=== PATIENT | female | born 1995 | race American Indian/Alaskan Native ===

== ENCOUNTER 2021-02-11 19:31 | Inpatient (IN) | payer BC ==
[2021-02-11] MEDS ORDERED: SODIUM CHLORIDE 0.9% 1000 ML 1,000 ML IV ONE (19:44)
--- NOTE | 2021-02-11 19:57 | Emergency Department Report ---
ED Animal Bite HPI - General Chief Complaint: Animal Bite Stated Complaint: SNAKE BITE Time Seen by Provider: 02/11/21 19:43 Source: patient Mode of arrival: Ambulatory Limitations: No Limitations - History of Present Illness Initial Comments: Patient presents secondary to a snake bite. She states that she is picked up sticks before. She saw a baby snake on her porch. She bent down to pick it up and it bit her. It bit her on the left index finger. She is right-hand dominant. The bite was over the middle phalanx dorsally. She states that it bi t her in [place]. She then ran. After looking up the type of snake on the Internet, she has concluded that this was a copperhead bite. She came here for evaluation. She is complaining of pain and swelling in the left index finger. She believes her immunizations are up-to-date. She has no other pain and no other bites. She currently is not having chest pain or trouble breathing. She states that she does not want to . - Related Data Allergies Allergy/AdvReac Type Severity Reaction Status Date / Time No Known Allergies Allergy Verified 02/11/21 20:30 ED Review of Systems ROS: Stated complaint: SNAKE BITE Other details as noted in HPI Comment: All other systems reviewed and negative Constitutional: denies: fever Eyes: denies: eye pain ENT: denies: throat pain Respiratory: denies: cough Cardiovascular: denies: chest pain Endocrine: denies: unexplained weight loss Gastrointestinal: denies: abdominal pain Genitourinary: denies: dysuria Musculoskeletal: denies: back pain Skin: denies: rash Neurological: denies: headache Psychiatric: anxiety (About the bite) Hematological/Lymphatic: denies: easy bruising ED Past Medical Hx - Past Medical History Previous Medical History?: No - Surgical History Past Surgical History?: No - Family History Family history: no significant ED Physical Exam - General Limitations: No Limitations, Other (Anxious and tearful. Pulse ox was noted in 100%. She is not hypoxic.) General appearance: alert, in distress (Moderate) - Head Head exam: Present: atraumatic, normocephalic, normal inspection - Eye Eye exam: Present: normal appearance, EOMI. Absent: scleral icterus - ENT ENT exam: Present: normal exam, normal orophraynx, mucous membranes moist - Neck Neck exam: Present: normal inspection. Absent: meningismus - Respiratory Respiratory exam: Present: normal lung sounds bilaterally. Absent: respiratory distress - Cardiovascular Cardiovascular Exam: Present: normal rhythm, tachycardia - GI/Abdominal GI/Abdominal exam: Present: soft. Absent: tenderness - Extremities Exam Extremities exam: Present: other (Patient has 2 puncture wounds to the dorsum of the left index finger over the middle phalanx. There is edema involving the left index finger to the MCP area. There is tenderness in this area.) - Back Exam Back exam: Absent: CVA tenderness (R), CVA tenderness (L) - Neurological Exam Neurological exam: Present: alert, oriented X3, reflexes normal. Absent: motor sensory deficit - Psychiatric Psychiatric exam: Present: anxious - Skin Skin exam: Present: warm, dry ED Course Vital Signs 02/11/21 02/11/21 02/11/21 19:35 19:54 20:01 Temperature 97.6 F Pulse Rate 140 H 106 H Respiratory 20 16 Rate Blood Pressure 129/57 Blood Pressure 123/77 [Right] O2 Sat by Pulse 100 93 98 Oximetry 02/11/21 02/11/21 02/11/21 20:15 20:31 20:45 Temperature Pulse Rate 103 H 95 H 91 H Respiratory 14 15 14 Rate Blood Pressure 132/63 118/76 111/69 Blood Pressure [Right] O2 Sat by Pulse 98 98 97 Oximetry 02/11/21 02/11/21 02/11/21 21:01 21:15 21:31 Temperature Pulse Rate 99 H 84 99 H Respiratory 15 13 14 Rate Blood Pressure 114/64 120/69 114/64 Blood Pressure [Right] O2 Sat by Pulse 98 97 97 Oximetry - Reevaluation(s) Reevaluation #1: 02/11/21 19:57 IV labs are ordered. Antibiotics were ordered. Tetanus booster was updated. Currently, there are no systemic symptoms. We will administer antivenin if they develop. 02/11/21 20:00 Reevaluation #2: 02/11/21 20:30 Patient is still tachycardic. There is more edema in the hand. We will initiate treatment with CroFab. Reevaluation #3: 02/11/21 21:17 Swelling is continuing to worsen. Patient is complaining of increasing pain in the left hand. Morphine and Zofran were ordered. Reevaluation #4: 02/11/21 21:29 Case was discussed with the hospitalist who will come see the patient. Reevaluation #5: 02/11/21 21:43 The patient was seen by the hospitalist who will admit the patient. 02/11/21 21:44 MDM Patient presented secondary to snake bite to the left index finger. She had developed some degree of systemic symptoms including worsening edema of the finger and hand and wrist. The presumption was that this was a pit viper, ying, based on her review and research. Patient was given antivenom here. She was hemodynamically stable. She was ultimately admitted for ongoing treatment and supportive care. She had been given analgesics here. Currently, there is no evidence of coagulopathy that has developed. Critical Care Time: Yes Critical care attestation.: If time is entered above; I have spent that time in minutes in the direct care of this critically ill patient, excluding procedure time. Critical Care Time: Critical care time of 45 minutes exclusive of procedures based on patient presentation and administer antivenom. ED Disposition Clinical Impression: Snake bite Qualifiers: Encounter type: initial encounter Qualified Code(s): W59.11XA - Bitten by nonvenomous snake, initial encounter Disposition: ADMITTED INPATIENT Is pt being admited?: Yes Does the pt Need Aspirin: No Condition: Fair
[2021-02-11] MEDS ORDERED: [UNRECOGNIZED DRUG - OTHER] IV ONE (20:29)
[2021-02-11] MEDS ORDERED: SODIUM CHLORIDE IV ONE (20:29)
[2021-02-11 20:56] LABS: Basophils # (Auto) 0.1 K/mm3 (0.0-0.1); Eosinophils # (Auto) 0.2 K/mm3 (0.0-0.4); Hematocrit 37.2 % (30.3-42.9); Hemoglobin 12.5 gm/dl (10.1-14.3); Lymphocytes # (Auto) 2.7 K/mm3 (1.2-5.4); Lymphocytes % (Auto) 38.4 % (13.4-35.0); Mean Corpuscular HGB Conc 34 % (30-34); Mean Corpuscular Volume 77 fl (79-97); Monocytes # (Auto) 0.6 K/mm3 (0.0-0.8); Monocytes % (Auto) 8.1 % (0.0-7.3); Platelet Count 381 K/mm3 (140-440); Red Blood Count 4.83 M/mm3 (3.65-5.03); Red Cell Distribution Width 15.7 % (13.2-15.2)
[2021-02-11 21:04] LABS: INR 0.98 (0.87-1.13)
[2021-02-11 21:06] LABS: Partial Thromboplastin Time 31.5 Sec. (24.2-36.6)
[2021-02-11 21:15] LABS: Alanine Aminotransferase 8 units/L (7-56); Albumin 4.5 g/dL (3.9-5); Blood Urea Nitrogen 6 mg/dL (7-17); Calcium 9.3 mg/dL (8.4-10.2); Hemolysis Index 2
[2021-02-11 21:17] LABS: BUN/Creatinine Ratio 12
[2021-02-11] MEDS ORDERED: MORPHINE 4 MG/1 ML INJ IV ONE (21:17)
[2021-02-11] MEDS: ONDANSETRON 4 MG/2 ML INJ IV ONE (21:31)
[2021-02-11] MEDS ORDERED: ONDANSETRON 4 MG/2 ML INJ IV PRN (21:50)
[2021-02-11] MEDS ORDERED: HYDROmorphone 1 MG/1 ML INJ IV PRN (21:50)
[2021-02-11] MEDS ORDERED: ALBUTEROL 2.5 MG/3 ML NEBU IH PRN (21:50)
[2021-02-11] MEDS ORDERED: oxyCODONE /ACETAMINOPHEN 5-325MG TAB PO PRN (21:50)
[2021-02-11] MEDS ORDERED: ACETAMINOPHEN 325 MG TAB PO PRN (21:50)
[2021-02-11] MEDS ORDERED: PIPERACIL/TAZOBACTA 4.5/NS 100 4.5 GM/100 ML VIAL IV SCH (22:00)
--- NOTE | 2021-02-11 22:01 | History and Physical Report ---
History of Present Illness Date of examination: 02/11/21 Date of admission: 02/11/21 Chief complaint: Snake bite History of present illness: 25 years old female with no significant past medical history was brought to the emergency room because of snake bite. She states that she is picked up sticks before. She saw a baby snake on her porch. She bent down to pick it up and it bit her. It bit her on the left index finger. She is right-hand dominant. The bite was over the middle phalanx dorsally. She states that it bit her in [place]. She then ran. After looking up the type of snake on the Internet, she has concluded that this was a copperhead bite. She came here for evaluation. She is complaining of pain and swelling in the left index finger. She believes her immunizations are up-to-date. She has no other pain and no other bites. She currently is not having chest pain or trouble breathing. She states that she does not want to . Patient presented secondary to snake bite to the left index finger. She had developed some degree of systemic symptoms including worsening edema of the finger and hand and wrist. The presumption was that this was a copperhead, based on her review and research. Patient was given antivenom here. She was hemodynamically stable. She was ultimately admitted for ongoing treatment and supportive care. She had been given analgesics here. Currently, there is no evidence of coagulopathy that has developed. Medications and Allergies Allergies Allergy/AdvReac Type Severity Reaction Status Date / Time No Known Allergies Allergy Verified 02/11/21 20:30 Active Meds: Active Medications Acetaminophen (Acetaminophen 325 Mg Tab) 650 mg PO Q4H PRN PRN Reason: Pain MILD(1-3)/Fever >100.5/WOLF Albuterol (Albuterol 2.5 Mg/3 Ml Nebu) 2.5 mg IH Q4HRT PRN PRN Reason: Shortness Of Breath Albuterol/Ipratropium (Ipratropium/Albuterol Sulfate 3 Ml Ampul.Neb) 1 ampul IH Q6HRT JAVIER Hydromorphone HCl (Hydromorphone 1 Mg/1 Ml Inj) 0.5 mg IV Q3H PRN PRN Reason: Pain , Severe (7-10) Dextrose/Sodium Chloride (D5ns) 1,000 mls @ 100 mls/hr IV DIRECT JAVIER Piperacillin Sod/Tazobactam Sod (Zosyn/Ns 4.5gm/100ml) 4.5 gm in 100 mls @ 200 mls/hr IV Q8H JAVIER; Protocol Ondansetron HCl (Ondansetron 4 Mg/2 Ml Inj) 4 mg IV Q8H PRN PRN Reason: Nausea And Vomiting Oxycodone/Acetaminophen (Oxycodone /Acetaminophen 5-325mg Tab) 1 tab PO Q6H PRN PRN Reason: Pain, Moderate (4-6) Pantoprazole Sodium (Pantoprazole 40 Mg Tab) 40 mg PO QDAC JAVIER Sodium Chloride (Sodium Chloride 0.9% 10 Ml Flush Syringe) 10 ml IV BID JAVIER Sodium Chloride (Sodium Chloride 0.9% 10 Ml Flush Syringe) 10 ml IV PRN PRN PRN Reason: LINE FLUSH Review of Systems All systems: negative Musculoskeletal: other ((Patient has 2 puncture wounds to the dorsum of the left index finger over the middle phalanx. There is edema involving the left index finger to the MCP area. There is tenderness in this area.)) Exam - Constitutional Vitals: Temp Pulse Resp BP Pulse Ox 97.6 F 99 H 14 114/64 97 02/11/21 19:35 02/11/21 21:31 02/11/21 21:31 02/11/21 21:31 02/11/21 21:31 General appearance: Present: no acute distress, well-nourished - EENT Eyes: Present: PERRL ENT: hearing intact, clear oral mucosa - Neck Neck: Present: supple, normal ROM - Respiratory Respiratory effort: normal Respiratory: bilateral: CTA - Cardiovascular Heart Sounds: Present: S1 & S2. Absent: rub, click - Extremities Extremities: pulses symmetrical, No edema Extremity abnormal: other ((Patient has 2 puncture wounds to the dorsum of the left index finger over the middle phalanx. There is edema involving the left index finger to the MCP area. There is tenderness in this area.)) Peripheral Pulses: within normal limits - Abdominal General gastrointestinal: Present: soft, non-tender, non-distended, normal bowel sounds Female genitourinary: Present: normal - Integumentary Integumentary: Present: clear, warm, dry - Musculoskeletal Musculoskeletal: gait normal, strength equal bilaterally - Psychiatric Psychiatric: appropriate mood/affect, intact judgment & insight - Neurologic Neurologic: CNII-XII intact, moves all extremities Results - Labs CBC & Chem 7: 02/11/21 20:24 02/11/21 20:24 Labs: Laboratory Last Values WBC 7.1 K/mm3 (4.5-11.0) 02/11/21 20:24 RBC 4.83 M/mm3 (3.65-5.03) 02/11/21 20:24 Hgb 12.5 gm/dl (10.1-14.3) 02/11/21 20:24 Hct 37.2 % (30.3-42.9) 02/11/21 20:24 MCV 77 fl (79-97) L 02/11/21 20:24 MCH 26 pg (28-32) L 02/11/21 20:24 MCHC 34 % (30-34) 02/11/21 20:24 RDW 15.7 % (13.2-15.2) H 02/11/21 20: Plt Count 381 K/mm3 (140-440) 02/11/21 20:24 Lymph % (Auto) 38.4 % (13.4-35.0) H 02/11/21 20:24 Fisher % (Auto) 8.1 % (0.0-7.3) H 02/11/21 20:24 Eos % (Auto) 3.0 % (0.0-4.3) 02/11/21 20:24 Baso % (Auto) 1.0 % (0.0-1.8) 02/11/21 20:24 Lymph # (Auto) 2.7 K/mm3 (1.2-5.4) 02/11/21 20:24 Fisher # (Auto) 0.6 K/mm3 (0.0-0.8) 02/11/21 20:24 Eos # (Auto) 0.2 K/mm3 (0.0-0.4) 02/11/21 20:24 Baso # (Auto) 0.1 K/mm3 (0.0-0.1) 02/11/21 20:24 Seg Neutrophils % 49.5 % (40.0-70.0) 02/11/21 20:24 Seg Neutrophils # 3.5 K/mm3 (1.8-7.7) 02/11/21 20:24 PT 13.5 Sec. (12.2-14.9) 02/11/21 20:24 INR 0.98 (0.87-1.13) 02/11/21 20:24 APTT 31.5 Sec. (24.2-36.6) 02/11/21 20:24 Sodium 137 mmol/L (137-145) 02/11/21 20:24 Potassium 3.6 mmol/L (3.6-5.0) 02/11/21 20:24 Chloride 102.6 mmol/L (98-107) 02/11/21 20:24 Carbon Dioxide 20 mmol/L (22-30) L 02/11/21 20:24 Anion Gap 18 mmol/L 02/11/21 20:24 BUN 6 mg/dL (7-17) L 02/11/21 20:24 Creatinine 0.5 mg/dL (0.6-1.2) L 02/11/21 20:24 Estimated GFR > 60 ml/min 02/11/21 20:24 BUN/Creatinine Ratio 12 % 02/11/21 20:24 Glucose 103 mg/dL (65-100) H 02/11/21 20:24 Calcium 9.3 mg/dL (8.4-10.2) 02/11/21 20:24 Total Bilirubin 0.20 mg/dL (0.1-1.2) 02/11/21 20:24 AST 15 units/L (5-40) 02/11/21 20:24 ALT 8 units/L (7-56) 02/11/21 20:24 Alkaline Phosphatase 94 units/L (35-129) 02/11/21 20:24 Total Protein 7.4 g/dL (6.3-8.2) 02/11/21 20:24 Albumin 4.5 g/dL (3.9-5) 02/11/21 20:24 Albumin/Globulin Ratio 1.6 % 02/11/21 20:24 Assessment and Plan VTE prophylaxis?: Mechanical Plan of care discussed with patient/family: Yes - Patient Problems (1) Snake bite Status: Acute Qualifiers: Encounter type: initial encounter Qualified Code(s): W59.11XA - Bitten by nonvenomous snake, initial encounter Plan to address problem: Admit the patient to the medical telemetry. N.p.o. D5 normal saline at the rate of 100 cc/h. Protonix 40 mg p.o. daily. Patient already get CroFab 5 vials in the emergency room. Zosyn 4.5 g IV every 8 hours. We will monitor the patient closely in the telemetry. Will consult wound care and infectious disease for evaluation. Consult neuro in the morning if needed. We will recheck CBC CMP PT/INR in the morning. If needed will give additional CroFab. (2) DVT prophylaxis Status: Acute Plan to address problem: SCD for DVT prophylaxis. Protonix 40 mg p.o. daily for GI prophylaxis. Patient is a full code.
--- NOTE | 2021-02-11 22:38 | XRay Report ---
EXAMINATION: XR finger(s) 2+V LT, INDICATION / CLINICAL INFORMATION: snake bite...index finger COMPARISON: None available. FINDINGS: BONES / JOINT(S): No acute fracture or subluxation. SOFT TISSUES: Mild soft tissue swelling of the left index finger. No soft tissue gas or radiopaque fo reign body. ADDITIONAL FINDINGS: None. IMPRESSION: Soft tissue swelling of the left index finger. No radiopaque foreign body or acute fracture. Signer Name: Caden Stout MD Signed: 02/11/2021 10:34 PM Workstation Name: [id number]
[2021-02-11] MEDS: oxyCODONE /ACETAMINOPHEN 5-325MG TAB PO PRN (23:50)
[2021-02-12 05:21] LABS: Basophils # (Auto) 0.1 K/mm3 (0.0-0.1); Eosinophils # (Auto) 0.1 K/mm3 (0.0-0.4); Eosinophils % (Auto) 0.9 % (0.0-4.3); Monocytes # (Auto) 0.9 K/mm3 (0.0-0.8); Monocytes % (Auto) 9.7 % (0.0-7.3)
[2021-02-12 05:29] LABS: INR 1.11 (0.87-1.13)
[2021-02-12 05:35] LABS: Hematocrit 32.3 % (30.3-42.9); Hemoglobin 10.4 gm/dl (10.1-14.3); Lymphocytes # (Auto) 2.2 K/mm3 (1.2-5.4); Lymphocytes % (Auto) 23.8 % (13.4-35.0); Mean Corpuscular HGB Conc 32 % (30-34); Mean Corpuscular Volume 78 fl (79-97); Platelet Count 290 K/mm3 (140-440); Red Blood Count 4.14 M/mm3 (3.65-5.03); Red Cell Distribution Width 15.7 % (13.2-15.2)
[2021-02-12 05:40] LABS: Alanine Aminotransferase 7 units/L (7-56); Albumin 3.7 g/dL (3.9-5); Blood Urea Nitrogen 6 mg/dL (7-17); Calcium 8.3 mg/dL (8.4-10.2); Hemolysis Index 0
[2021-02-12 05:42] LABS: BUN/Creatinine Ratio 12
[2021-02-12] MEDS: PANTOPRAZOLE 40 MG TAB PO SCH (07:40)
[2021-02-12] MEDS: D5W/0.9% NACL 1,000 ML IV SCH ×2 (07:56→22:39)
[2021-02-12] MEDS: oxyCODONE /ACETAMINOPHEN 5-325MG TAB PO PRN ×2 (11:06→18:19)
--- NOTE | 2021-02-12 11:37 | Progress Note ---
Assessment and Plan Assessment and plan: --Copperhead snake bite; Status: Acute Patient already get CroFab 5 vials in ED upon arrival Pain medications, IV fluids, elevate the limb supportive care Empiric antibiotics Zosyn, pending ID and wound care evaluation Patient has no allergic reaction, neurologic reaction altered level of consciousness Continue supportive care --Cellulitis left hand and forearm Status: Acute Elevate the limb,, Continue IV antibiotics, anti-inflammatories Antihistamines if needed, and supportive care --DVT prophylaxis Status: Acute SCD for DVT prophylaxis. Follow ID evaluation recommendations Closely monitor the patient and adjust management as needed Plan of care with the patient and her nurse Possible discharge in 1 to 2 days if stable History Interval history: I have seen and examined the patient at the bedside Patient's chart and medications reviewed Patient complains of some pain left hand and forearm and swelling Left index finger slight discoloration at the site of snakebite and tenderness on palpation Hospitalist Physical - Constitutional Vitals: Temp Pulse Resp BP Pulse Ox 98.4 F 74 20 105/63 99 02/12/21 09:04 02/12/21 09:04 02/12/21 09:04 02/12/21 09:04 02/12/21 09:04 General appearance: Present: mild distress, well-nourished - EENT Eyes: Present: PERRL, EOM intact - Neck Neck: Present: supple, normal ROM - Respiratory Respiratory effort: normal Respiratory: bilateral: diminished, negative: rales, rhonchi, wheezing - Cardiovascular Rhythm: regular Heart Sounds: Present: S1 & S2 - Extremities Extremities: abnormal (Left hand forearm swelling, tenderness) - Abdominal General gastrointestinal: soft, non-tender, non-distended, normal bowel sounds - Integumentary Integumentary: Present: clear, warm - Psychiatric Psychiatric: appropriate mood/affect, cooperative - Neurologic Neurologic: CNII-XII intact, moves all extremities Results - Labs CBC & Chem 7: 02/12/21 04:52 02/12/21 04:52 Labs: Laboratory Last Values WBC 9.2 K/mm3 (4.5-11.0) 02/12/21 04:52 RBC 4.14 M/mm3 (3.65-5.03) 02/12/21 04:52 Hgb 10.4 gm/dl (10.1-14.3) 02/12/21 04:52 Hct 32.3 % (30.3-42.9) 02/12/21 04:52 MCV 78 fl (79-97) L 02/12/21 04:52 MCH 25 pg (28-32) L 02/12/21 04:52 MCHC 32 % (30-34) 02/12/21 04:52 RDW 15.7 % (13.2-15.2) H 02/12/21 04:52 Plt Count 290 K/mm3 (140-440) 02/12/21 04:52 Lymph % (Auto) 23.8 % (13.4-35.0) 02/12/21 04:52 [place] % (Auto) 9.7 % (0.0-7.3) H 02/12/21 04:52 Eos % (Auto) 0.9 % (0.0-4.3) 02/12/21 04:52 Baso % (Auto) 1.0 % (0.0-1.8) 02/12/21 04:52 Lymph # (Auto) 2.2 K/mm3 (1.2-5.4) 02/12/21 04:52 [place] # (Auto) 0.9 K/mm3 (0.0-0.8) H 02/12/21 04:52 Eos # (Auto) 0.1 K/mm3 (0.0-0.4) 02/12/21 04:52 Baso # (Auto) 0.1 K/mm3 (0.0-0.1) 02/12/21 04:52 Seg Neutrophils % 64.6 % (40.0-70.0) 02/12/21 04:52 Seg Neutrophils # 5.9 K/mm3 (1.8-7.7) 02/12/21 04:52 PT 14.8 Sec. (12.2-14.9) 02/12/21 04:52 INR 1.11 (0.87-1.13) 02/12/21 04:52 APTT 31.5 Sec. (24.2-36.6) 02/11/21 20:24 Sodium 140 mmol/L (137-145) 02/12/21 04:52 Potassium 3.5 mmol/L (3.6-5.0) L 02/12/21 04:52 Chloride 108.0 mmol/L (98-107) H 02/12/21 04:52 Carbon Dioxide 22 mmol/L (22-30) 02/12/21 04:52 Anion Gap 14 mmol/L 02/12/21 04:52 BUN 6 mg/dL (7-17) L 02/12/21 04:52 Creatinine 0.5 mg/dL (0.6-1.2) L 02/12/21 04:52 Estimated GFR > 60 ml/min 02/12/21 04:52 BUN/Creatinine Ratio 12 % 02/12/21 04:52 Glucose 93 mg/dL (65-100) 02/12/21 04:52 Calcium 8.3 mg/dL (8.4-10.2) L 02/12/21 04:52 Total Bilirubin 0.40 mg/dL (0.1-1.2) 02/12/21 04:52 AST 11 units/L (5-40) 02/12/21 04:52 ALT 7 units/L (7-56) 02/12/21 04:52 Alkaline Phosphatase 79 units/L (35-129) 02/12/21 04:52 Total Protein 6.1 g/dL (6.3-8.2) L 02/12/21 04:52 Albumin 3.7 g/dL (3.9-5) L 02/12/21 04:52 Albumin/Globulin Ratio 1.5 % 02/12/21 04:52 Schumacher/IV: Voiding Method Toilet Active Medications - Current Medications Current Medications: Generic Name Dose Route Start Last Admin Trade Name Freq PRN Reason Stop Dose Admin Acetaminophen 650 mg 02/11/21 21:50 Acetaminophen 325 Mg Tab PO Q4H PRN Pain MILD(1-3)/Fever >100.5/WOLF Albuterol 2.5 mg 02/11/21 21:50 Albuterol 2.5 Mg/3 Ml Nebu IH Q4HRT PRN Shortness Of Breath Albuterol/Ipratropium 1 ampul 02/12/21 02:00 Ipratropium/Albuterol Sulfate 3 Ml Ampul.Neb IH Q6HRT JAVIER Hydromorphone HCl 0.5 mg 02/11/21 21:50 Hydromorphone 1 Mg/1 Ml Inj IV Q3H PRN Pain , Severe (7-10) Dextrose/Sodium Chloride 1,000 mls @ 100 mls/hr 02/11/21 22:00 02/12/21 07:56 D5ns IV 100 mls/hr DIRECT JAVIER Administration Piperacillin Sod/Tazobactam Sod 4.5 gm in 100 mls @ 200 mls/hr 02/11/21 22:00 02/12/21 07:57 Zosyn/Ns 4.5gm/100ml IV 200 mls/hr Q8H JAVIER Administration Protocol Ondansetron HCl 4 mg 02/11/21 21:50 Ondansetron 4 Mg/2 Ml Inj IV Q8H PRN Nausea And Vomiting Oxycodone/Acetaminophen 1 tab 02/11/21 23:29 02/12/21 11:06 Oxycodone /Acetaminophen 5-325mg Tab PO 1 tab Q6H PRN Administration Pain, Moderate (4-6) Pantoprazole Sodium 40 mg 02/12/21 07:30 Pantoprazole 40 Mg Tab PO QDAC JAVIRE Sodium Chloride 10 ml 02/11/21 22:00 02/12/21 11:08 Sodium Chloride 0.9% 10 Ml Flush Syringe IV 10 ml BID JAVIER Administration Sodium Chloride 10 ml 02/11/21 21:50 Sodium Chloride 0.9% 10 Ml Flush Syringe IV PRN PRN LINE FLUSH
--- NOTE | 2021-02-12 14:45 | Consultation ---
History of Present Illness - Reason for Consult Consult date: 02/12/21 snake bite - History of Present Illness 25-year-old female with no medical history, admitted on 02/11/2021 secondary to snack bite to her left index causing pain. She tried to grab a baby snake on her porch and bit her. It is believed that it is a copperhead snack. She denies any fever, chills, nausea, vomiting, diarrhea. On arrival, temperature 97.6, HR 140, RR 20, O2 100, BP 133/77. Initial WBC 7.1. LFTs normal. Creatinine normal. X-ray shows soft tissue swelling of the index, no fractures. Review of Systems: positive in bold print General: fever, chills, malaise Cutaneous: rash, pruritus Head: headaches or injury Eyes: changes in vision, eye pain, double vision Ears: ear pain, ear discharge, ringing or hearing loss Nose: nose bleeding, stuffiness Mouth & throat: bleeding gums, horseness, no dental problems, or swollen glands Neck: no pain, node enlargement/lumps, tyroid enlargement or tenderness Respiratory: SOB, cough, HERNANDEZ, wheezing, sputum, hemoptysis, pleuritic chest pain Cardiovascular: chest pain, leg edema, cyanosis, HERNANDEZ, orthopnea Musculoskeletal: Edema and tenderness left index. no deformities, pain Gastrointestinal: nausea, vomiting, hematemesis, diarrhea, constipation, melena, bright red blood in stools, fecal incontinence, jaundice Genitourinary/Reproductive: frequent urination, dysuria, hematuria, incontinence Neurogical: seizures, headaches, weakness, paresthesias, loss of speech or vision; memory loss, vertigo, tremors, numbness Psychiatric: stable mood; excessive anxiety, sadness or moodiness Medications and Allergies Allergies Allergy/AdvReac Type Severity Reaction Status Date / Time No Known Allergies Allergy Verified 02/11/21 20:30 Home Medications Medication Instructions Recorded Confirmed Last Taken Type No Known Home Medications [No 02/12/21 02/12/21 Unknown History Reported Home Medications] Active Meds: Active Medications Acetaminophen (Acetaminophen 325 Mg Tab) 650 mg PO Q4H PRN PRN Reason: Pain MILD(1-3)/Fever >100.5/WOLF Albuterol (Albuterol 2.5 Mg/3 Ml Nebu) 2.5 mg IH Q4HRT PRN PRN Reason: Shortness Of Breath Albuterol/Ipratropium (Ipratropium/Albuterol Sulfate 3 Ml Ampul.Neb) 1 ampul IH Q6HRT JAVIER Hydromorphone HCl (Hydromorphone 1 Mg/1 Ml Inj) 0.5 mg IV Q3H PRN PRN Reason: Pain , Severe (7-10) Dextrose/Sodium Chloride (D5ns) 1,000 mls @ 100 mls/hr IV DIRECT JAVIER Last Admin: 02/12/21 07:56 Dose: 100 mls/hr Documented by: Piperacillin Sod/Tazobactam Sod (Zosyn/Ns 4.5gm/100ml) 4.5 gm in 100 mls @ 200 mls/hr IV Q8H JAVIER; Protocol Last Admin: 02/12/21 07:57 Dose: 200 mls/hr Documented by: Ondansetron HCl (Ondansetron 4 Mg/2 Ml Inj) 4 mg IV Q8H PRN PRN Reason: Nausea And Vomiting Oxycodone/Acetaminophen (Oxycodone /Acetaminophen 5-325mg Tab) 1 tab PO Q6H PRN PRN Reason: Pain, Moderate (4-6) Last Admin: 02/12/21 11:06 Dose: 1 tab Documented by: Pantoprazole Sodium (Pantoprazole 40 Mg Tab) 40 mg PO QDAC JAVIER Sodium Chloride (Sodium Chloride 0.9% 10 Ml Flush Syringe) 10 ml IV BID JAVIER Last Admin: 02/12/21 11:08 Dose: 10 ml Documented by: Sodium Chloride (Sodium Chloride 0.9% 10 Ml Flush Syringe) 10 ml IV PRN PRN PRN Reason: LINE FLUSH Physical Examination - Physical Exam Narrative exam: General appearance: Alert in NAD pleasant Eyes: anicteric sclerae, moist conjunctivae; no lid-lag; PERRLA HENT: Normocephalic, Atraumatic; normal external ears, nares open, oropharynx clear. Neck: supple, tracheal midline, no JVD Lungs: Clear to auscultation bilaterally. CV: RRR no murmur Abdomen: Soft, non-tender; no masses or hepatosplenomegaly Extremities: Left index mild edema and tenderness. Skin: No rash. Psych: no agitated Neuro: alert and oriented x 3. Moving all extermities - Constitutional Vitals: Vital Signs Temp Pulse Resp BP Pulse Ox 97.9 F 75 18 95/50 97 02/12/21 12:44 02/12/21 12:44 02/12/21 12:44 02/12/21 12:44 02/12/21 12:44 Temperature -Last 24 Hours Temperature 97.9 F Temperature 98.4 F Temperature 97.7 F Temperature 97.6 F Results - Labs CBC & Chem 7: 02/12/21 04:52 02/12/21 04:52 Labs: Abnormal lab results 02/11/21 02/11/21 02/12/21 Range/Units 20:24 20:24 04:52 MCV 77 L 78 L (79-97) fl MCH 26 L 25 L (28-32) pg RDW 15.7 H 15.7 H (13.2-15.2) % Lymph % (Auto) 38.4 H (13.4-35.0) % [place] % (Auto) 8.1 H 9.7 H (0.0-7.3) % [place] # (Auto) 0.9 H (0.0-0.8) K/mm3 Potassium (3.6-5.0) mmol/L Chloride (98-107) mmol/L Carbon Dioxide 20 L (22-30) mmol/L BUN 6 L (7-17) mg/dL Creatinine 0.5 L (0.6-1.2) mg/dL Glucose 103 H (65-100) mg/dL Calcium (8.4-10.2) mg/dL Total Protein (6.3-8.2) g/dL Albumin (3.9-5) g/dL 02/12/21 Range/Units 04:52 MCV (79-97) fl MCH (28-32) pg RDW (13.2-15.2) % Lymph % (Auto) (13.4-35.0) % [place] % (Auto) (0.0-7.3) % [place] # (Auto) (0.0-0.8) K/mm3 Potassium 3.5 L (3.6-5.0) mmol/L Chloride 108.0 H (98-107) mmol/L Carbon Dioxide (22-30) mmol/L BUN 6 L (7-17) mg/dL Creatinine 0.5 L (0.6-1.2) mg/dL Glucose (65-100) mg/dL Calcium 8.3 L (8.4-10.2) mg/dL Total Protein 6.1 L (6.3-8.2) g/dL Albumin 3.7 L (3.9-5) g/dL Assessment and Plan Cultures: None Assessment: 25-year-old female with no medical history, admitted on 02/11/2021 secondary to snack bite to her left index causing pain: #Likely copperhead snake envenomation: causing local swelling, no evidence of tissue necrotis, ecchymosis or hematologiv toxicity. Normal coags. Received CroFab (antivenom) Recommendations: Local wound management Pain control Close observation for 24h to ensure progression of toxicity Coags before dc Stop abx Will follow. Izzy Carey MD Infectious Diseases Research Animal Att[facility] M [phone] O [phone]
[2021-02-12] MEDS: IPRATROPIUM/ALBUTEROL SULFATE 3 ML AMPUL.NEB IH SCH ×2 (18:23→21:05)
[2021-02-13] MEDS: D5W/0.9% NACL 1,000 ML IV SCH (04:59)
[2021-02-13 08:35] VITALS: BP 89/38
[2021-02-13] MEDS: PANTOPRAZOLE 40 MG TAB PO SCH (09:30)
--- NOTE | 2021-02-13 10:30 | Progress Note ---
Assessment and Plan Cultures: None Assessment: 25-year-old female with no medical history, admitted on 02/11/2021 secondary to snack bite to her left index causing pain: #Likely copperhead snake envenomation: causing local swelling, no evidence of tissue necrosis, ecchymosis or hematologiv toxicity. Normal coags. Received CroFab (antivenom) Recommendations: Local wound management Pain control Close observation for 24h to ensure progression of toxicity Coags before dc Stop abx Okay to discharge from ID standpoint, will sign off Will follow. Izzy Carey MD Infectious Diseases Supplier Engineer [facility] ([facility]) M [phone] O [phone] Subjective Date of service: 02/13/21 Interval history: Patient feels better. Finger pain is minimal. Edema is minimal. No fever overnight. Objective - Exam Narrative Exam: General appearance: Alert in NAD pleasant Eyes: anicteric sclerae, moist conjunctivae; no lid-lag; PERRLA HENT: Normocephalic, Atraumatic; normal external ears, nares open, oropharynx clear. Neck: supple, tracheal midline, no JVD Lungs: Clear to auscultation bilaterally. CV: RRR no murmur Abdomen: Soft, non-tender; no masses or hepatosplenomegaly Extremities: Left index mild edema and tenderness. Skin: No rash. Psych: no agitated Neuro: alert and oriented x 3. Moving all extermities - Constitutional Vitals: Vital Signs Temp Pulse Resp BP Pulse Ox 97.7 F 80 18 89/38 97 02/13/21 07:37 02/13/21 07:37 02/13/21 07:37 02/13/21 07:37 02/13/21 07:37 Temperature -Last 24 Hours Temperature 97.7 F Temperature 97.7 F Temperature 97.7 F Temperature 97.2 F Temperature 97.9 F - Labs CBC & Chem 7: 02/12/21 04:52 02/12/21 04:52
--- NOTE | 2021-02-13 11:16 | Discharge Summary ---
Providers - Providers Date of Admission: 02/11/21 21:50 Date of discharge: 02/13/21 Attending physician: SUMAYA SIMMS 02/11/21 21:50 Consult to Physician [CONS] Routine Comment: Consulting Provider: DANETTE LOCKHART Physician Instructions: Reason For Exam: snake bite 02/11/21 21:56 Consult to Wound/ET Nurse [CONS] Routine Reason For Exam: wound eval Primary care physician: WAYBILL CLERK Hospitalization Reason for admission: Snakebite, pain left hand Condition: Fair Pertinent studies: X-ray left index finger; soft tissue swelling, no fracture Hospital course: 25 years old female patient with no significant past medical history was brought to the emergency room because of snake bite. She states that she is picked up sticks before. She saw a baby snake on her porch. She bent down to pick it up and it bit her. It bit her on the left index finger. She is right-hand dominant. The bite was over the middle phalanx dorsally. She states that it bit her in [place]. She then ran. After looking up the type of snake on the Internet, she has concluded that this was a copperhead bite. She came here for evaluation. She is complaining of pain and swelling in the left index finger. She believes her immunizations are up-to-date. She has no other pain and no other bites. She currently is not having chest pain or trouble breathing. Patient had left hand swelling cellulitis. Patient received CroFab 5 vials in ED, pain medications and Benadryl with elevation of the limb. Patient did not have any respiratory symptoms, closely monitored for any neurological or hematological coagulopathy issues. However patient did not have any acute symptoms. Started on empiric antibiotics for possible cellulitis, evaluated by ID discontinued antibiotics. Today patient is comfortable, no new complaints, vital signs stable, physical physical exam prior to discharge is unremarkable. Discharge diagnosis: --Copperhead snake bite; Status: Acute Patient already get CroFab 5 vials in ED upon arrival Pain medications, IV fluids, elevate the limb supportive care Empiric antibiotics Zosyn, pending ID and wound care evaluation Patient has no allergic reaction, neurologic reaction altered level of consciousness Continue supportive care --Cellulitis left hand and forearm Status: Acute Elevate the limb,, Continue IV antibiotics, anti-inflammatories Antihistamines if needed, and supportive care Patient symptoms significantly improved Stable at discharge Disposition: 01 HOME / SELF CARE / HOMELESS Final Discharge Diagnosis (Prints w/discharge instructions): Copperhead snake bite[received CroFab/antivenom]. Left hand and forearm swelling[resolved] Time spent for discharge: 35 min Core Measure Documentation - Palliative Care Palliative Care/ Comfort Measures: Not Applicable - Core Measures Any of the following diagnoses?: none Exam - Constitutional Vitals: Temp Pulse Resp BP Pulse Ox 97.7 F 80 18 89/38 97 02/13/21 07:37 02/13/21 07:37 02/13/21 07:37 02/13/21 07:37 02/13/21 07:37 General appearance: Present: no acute distress, well-nourished - EENT Eyes: Present: PERRL, EOM intact - Neck Neck: Present: supple, normal ROM - Respiratory Respiratory effort: normal, labored Respiratory: bilateral: diminished, negative: rales, rhonchi, wheezing - Cardiovascular Rhythm: regular Heart Sounds: Present: S1 & S2 - Extremities Extremities: no ischemia, No edema - Abdominal General gastrointestinal: Present: soft, non-tender, non-distended, normal bowel sounds - Integumentary Integumentary: Present: clear, warm - Musculoskeletal Musculoskeletal: strength equal bilaterally - Psychiatric Psychiatric: appropriate mood/affect, cooperative - Neurologic Neurologic: CNII-XII intact, moves all extremities Plan Activity: no restrictions Diet: regular Additional Instructions: Elevate the left arm if you still have any residual swelling. If you have worsening symptoms contact MD or go to the emergency room as needed. Advised to drink plenty fluids as your blood pressures are in the lower range. You may take [id number] Tylenol for moderate pain. May take Percocet for severe pain as needed Follow up with: PRIMARY CARE,MD [Primary Care Provider] - 7 Days Prescriptions: oxyCODONE /ACETAMINOPHEN [Percocet 5/325 mg] 1 tab PO BID PRN #10 tablet PRN Reason: Pain, Moderate (4-6)
== END 2021-02-13 13:10 | disposition home or self-care (01) | DRG 918 ==
LOC: ED 19:31 → 4A 21:50
PROVIDERS: ADMIT Hospitalist; ATTEND Internal Medicine
DX: T63.091A Toxic effect of venom of other snake, accidental (unintentional), initial encounter (principal); L03.114 Cellulitis of left upper limb; Y92.89 Other specified places as the place of occurrence of the external cause
CPT/HCPCS: 36415; 80053; 85025; 85610; 85730; G0378; J0840; J2270; J2405; J2543; J7030; J7042; J7050